=== PATIENT | female | born 1990 | race African-American/Black ===

== ENCOUNTER 2017-12-14 21:25 | Emergency (ER) | payer OTHER, SELFPAY ==
[2017-12-14 21:54] LABS: Squamous Epithelial 0-3 HPF (0-3)
[2017-12-14 21:55] LABS: Bilirubin Negative (Negative); Blood, Urine Large (Negative); Glucose, Urine (Dipstick) Negative (Negative); Leukocyte Small (Negative); Nitrite Negative (Negative); Protein, Urine (Dipstick) 100 mg/dL (Neg-Trace); Specific Gravity, Urine 1.025 (1.005-1.030); Urobilinogen 0.2 mg/dL (0.2-1.0); pH, Urine 6.5 (5.0-9.0)
[2017-12-14 21:57] LABS: Clarity Cloudy (Clear)
[2017-12-14 21:58] LABS: Pathc Cast-AUWi Flag 18.16 (0-2.49); RBC/HPF GREATER THAN 50-TNTC HPF (0-3); Yeast-AUWi Flag 348.5 (0-25.0)
[2017-12-14 22:00] LABS: Bacteria/HPF Rare-Few HPF (None Seen); Hyaline Casts/LPF NONE SEEN LPF (0-3 Hyaline)
[2017-12-14 22:26] LABS: Pregnancy Test - Urine (BHCG) Negative (Negative); Pregu Control Background? CLEAR/WHITE (CLR/WHITE); Pregu Control Bar Appear? YES (CONTROL BAR); Specific Gravity 1.025 (1.002-1.036)
== END 2017-12-14 23:27 | disposition home or self-care (01) ==
LOC: ERS 21:25
DX: N39.0 Urinary tract infection, site not specified (principal)
CPT/HCPCS: 81003; 81015; 81025; 87077; 87086; 87186; 99283